=== PATIENT | female | born 1955 | race Native Hawaiian/Other Pacific Islander ===

== ENCOUNTER 2018-05-04 11:15 | Outpatient (CLI) | payer OTHER | END 2018-05-04 23:11 | disposition home or self-care (01) | LOC: MAMMO 11:15 | DX: Z12.31 Encounter for screening mammogram for malignant neoplasm of breast (principal) ==

== ENCOUNTER 2018-07-13 11:08 | Day surgery (SDC) | payer OTHER ==
[2018-07-13 12:28] LABS: PLATELET COUNT 89 K/uL (152-353)
[2018-07-13 12:44] LABS: POTASSIUM 4.1 mmol/L (3.6-5.2)
== END 2018-07-13 14:30 | disposition home or self-care (01) ==
LOC: OR 11:08
PROVIDERS: Internal Medicine Gastroenterology
PROC: 0DB68ZZ Excision of Stomach, Via Natural or Artificial Opening Endoscopic (ICD-10-PCS; principal; 2018-07-13)
DX: K25.9 Gastric ulcer, unspecified as acute or chronic, without hemorrhage or perforation (principal); K29.50 Unspecified chronic gastritis without bleeding; K21.0 Gastro-esophageal reflux disease with esophagitis; R10.13 Epigastric pain; R11.0 Nausea
CPT/HCPCS: 80053; 85027; J2001; J2250; J2405; J2704

== ENCOUNTER 2018-07-27 10:53 | Day surgery (SDC) | payer OTHER | END 2018-07-27 15:50 | disposition home or self-care (01) | LOC: OR 10:53 | PROC: 0DBN8ZZ Excision of Sigmoid Colon, Via Natural or Artificial Opening Endoscopic (ICD-10-PCS; principal; 2018-07-27) | PROC: 0DBL8ZZ Excision of Transverse Colon, Via Natural or Artificial Opening Endoscopic (ICD-10-PCS; 2018-07-27) | DX: K63.5 Polyp of colon (principal); D12.3 Benign neoplasm of transverse colon; K57.30 Diverticulosis of large intestine without perforation or abscess without bleeding; K64.8 Other hemorrhoids; Z12.11 Encounter for screening for malignant neoplasm of colon | CPT/HCPCS: 93005; J2001; J2250; J2704; J3490 ==

== ENCOUNTER 2018-12-28 11:44 | Day surgery (SDC) | payer OTHER ==
[2018-12-28 12:45] LABS: PLATELET COUNT 87 K/uL (152-353)
[2018-12-28 12:51] LABS: POTASSIUM 3.8 mmol/L (3.6-5.2)
== END 2018-12-28 17:23 | disposition home or self-care (01) ==
LOC: OR 11:44
PROVIDERS: Internal Medicine Gastroenterology
PROC: 0DB68ZZ Excision of Stomach, Via Natural or Artificial Opening Endoscopic (ICD-10-PCS; principal; 2018-12-28)
DX: K29.50 Unspecified chronic gastritis without bleeding (principal); K21.0 Gastro-esophageal reflux disease with esophagitis; Z87.11 Personal history of peptic ulcer disease; R11.0 Nausea
CPT/HCPCS: 80053; 85027

== ENCOUNTER 2018-12-29 10:40 | Outpatient (CLI) | payer OTHER | END 2018-12-29 19:54 | disposition home or self-care (01) | LOC: LABW 10:40 | DX: K21.9 Gastro-esophageal reflux disease without esophagitis (principal); K25.9 Gastric ulcer, unspecified as acute or chronic, without hemorrhage or perforation; D64.9 Anemia, unspecified; R53.82 Chronic fatigue, unspecified | CPT/HCPCS: 36415; 80074; 82103; 82390; 82525; 82728; 83516; 83540; 83550; 86038 ==

== ENCOUNTER 2019-01-18 10:38 | Outpatient (CLI) | payer OTHER | END 2019-01-18 20:05 | disposition home or self-care (01) | LOC: LABW 10:38 | DX: R94.5 Abnormal results of liver function studies (principal) ==

== ENCOUNTER 2020-08-01 11:30 | Outpatient (CLI) | payer OTHER | END 2020-08-01 23:55 | disposition home or self-care (01) | LOC: MAMMO 11:30 | PROVIDERS: ATTEND Nurse Practitioner Family | DX: Z12.31 Encounter for screening mammogram for malignant neoplasm of breast (principal) ==

== ENCOUNTER 2020-09-18 08:18 | Outpatient (CLI) | payer OTHER | END 2020-09-18 13:54 | disposition home or self-care (01) | LOC: US 08:18 | PROVIDERS: ATTEND Internal Medicine Hematology & Oncology | DX: K76.0 Fatty (change of) liver, not elsewhere classified (principal); D61.818 Other pancytopenia; D64.9 Anemia, unspecified; D69.6 Thrombocytopenia, unspecified; D72.819 Decreased white blood cell count, unspecified ==

== ENCOUNTER 2021-12-18 09:52 | Outpatient (CLI) | payer OTHER | END 2021-12-18 21:57 | disposition home or self-care (01) | LOC: RAD 09:52 → MAMMO 10:00 → RAD 21:57 | PROVIDERS: ATTEND Internal Medicine | DX: Z12.31 Encounter for screening mammogram for malignant neoplasm of breast (principal); Z13.820 Encounter for screening for osteoporosis; N95.8 Other specified menopausal and perimenopausal disorders; N95.1 Menopausal and female climacteric states ==